=== PATIENT | female | born 1940 | race Caucasian/White ===

== ENCOUNTER → 2018-05-04 | Outpatient (CLI) | payer MEDICARE ==
[~2018-05-04] MED LIST: ALPR.25 PO; AMIO200 PO; ATOR20 PO; Bystolic5 MG PO; CELE200; CYAN500 PO; DIGO.25 PO; ESOM20 PO; FURO20 PO; Flomax0.4 MG PO; HYDACE5 PO; HYDCHL12.5 PO; HYDR1TAB94 PO; LISI20 PO; MEDR10 PO; NEBI10 PO; NEBI5 PO; NITR.4SL SL; Nitrostat0.4 MG SL; Norco 5-325 Ta1 EACH PO; POTCHL20ER PO; Prinivil10 MG PO; Questran4 GM PO; RANI150 PO; SPIR25 PO; TORS10; TORS10 PO; TRAM50 PO; TRIHYD5075 PO; WARF2.5 PO; WARF5 PO; WARF7.5 PO
[2018-05-06 14:09] LABS: HPV 16 Positive (Negative); HPV 18 Negative (Negative); HPV OTHER HR TYPES Negative (Negative)
== END | disposition home or self-care (01) ==
LOC: LAB SHORT 11:19 → LAB 11:19
PROVIDERS: Obstetrics & Gynecology
DX: N89.9 Noninflammatory disorder of vagina, unspecified (principal); Z92.89 Personal history of other medical treatment
CPT/HCPCS: 87529

== ENCOUNTER → 2018-08-17 | Outpatient (CLI) | payer MEDICARE | END | disposition home or self-care (01) | LOC: LAB SHORT 07:48 → PLD 07:48 | DX: N87.1 Moderate cervical dysplasia (principal) | CPT/HCPCS: 88305; 88341; 88342 ==

== ENCOUNTER 2018-09-09 20:29 | Inpatient (IN) | payer MEDICARE ==
[~2018-09-09] VITALS: Ht 165.1 cm; Wt 124.4 kg
[2018-09-09 21:29] LABS: BASOPHILS ABSOLUTE AUTO 0.03 K/mm3 (0.00-0.23); BASOPHILS PERCENT AUTO 0 % (0-2); EOSINOPHILS ABSOLUTE AUTO 0.05 K/mm3 (0.00-0.68); EOSINOPHILS PERCENT AUTO 1 % (0-6); Hematocrit 44.1 % (33.0-51.0); Hemoglobin 13.9 g/dL (11.5-16.0); IMMATURE GRAN ABSOLUTE AUTO 0.01 K/mm3 (0.00-0.10); IMMATURE GRAN PERCENT AUTO 0 % (0-1); LYMPHOCYTES ABSOLUTE AUTO 1.62 K/mm3 (0.84-5.20); LYMPHOCYTES PERCENT AUTO 24 % (21-46); MONOCYTES ABSOLUTE AUTO 0.35 K/mm3 (0.16-1.47); MONOCYTES PERCENT AUTO 5 % (4-13); Mean Corpuscular HGB 29.3 pg (26.0-34.0); Mean Corpuscular HGB Conc 31.5 g/dL (31.5-36.5); Mean Corpuscular Volume 93 fL (80-100); Mean Platelet Volume 11.3 fL (9.1-12.4); NEUTROPHILS ABSOLUTE AUTO 4.65 K/mm3 (1.96-9.15); NEUTROPHILS PERCENT AUTO 70 % (41-73); Platelet Count 207 K/mm3 (150-400); RDW Coefficient Variation 13.5 % (11.7-14.2); RDW Standard Deviation 46.3 fL (35.1-46.3); Red Blood Cell Count 4.74 M/mm3 (3.80-5.20); White Blood Cell Count 6.71 K/mm3 (4.00-11.30)
[2018-09-09 21:47] LABS: Alanine Aminotransfer (ALT/SGP 20 U/L (12-78); Albumin, Blood 3.7 g/dL (3.4-5.0); Albumin/Globulin Ratio 0.9 (0.8-1.8); Alk Phos 98 U/L (50-136); Anion Gap 10 mmol/L (6-16); Aspartate Aminotrans (AST/SGOT 17 U/L (12-37); Bilirubin, Total 0.9 mg/dL (0.1-1.0); Blood Urea Nitrogen 21 mg/dL (8-24); Bun/Creatinine Ratio 30.3 (12.0-20.0); CO2, Blood 25 mmol/L (21-32); Calcium, Blood 8.9 mg/dL (8.5-10.1); Chloride, Blood 109 mmol/L (98-108); Creatinine, Blood 0.69 mg/dL (0.40-1.00); Glomerular Filtration Rate >60 (60-); Glucose, Blood 151 mg/dL (70-99); Sodium, Blood 144 mmol/L (136-145); Total Protein, Blood 7.7 g/dL (6.4-8.2)
[2018-09-09 23:47] LABS: Source, Urine Clean Catch
[2018-09-09 23:55] LABS: Appearance, Urine Hazy (Clear); Bilirubin, Urine Neg (Neg); Blood, Urine 2+ (Neg); Color, Urine Yellow (P-Yellow); Glucose Qualitative, Urine Neg (Neg); Ketones, Urine Neg (Neg); Leukocyte Esterase, Urine 3+ (Neg); Nitrite, Urine Pos (Neg); Protein, Urine 2+ (Neg); Urobilinogen, Urine NORM (Normal)
[2018-09-10 00:03] LABS: Bacteria Many /hpf; Red Blood Cells, Urine 0-2 /hpf (0-2); Squamous Epithelial Cells Mod /hpf (Few); White Blood Cells, Urine 25-50 /hpf (0-5)
[2018-09-10] MEDS ORDERED: ATOR20 PO (02:14)
[2018-09-10] MEDS ORDERED: LISI20 PO (02:14)
[2018-09-10] MEDS ORDERED: WARF5 PO (02:15)
[2018-09-10] MEDS ORDERED: FURO20 PO (02:15)
[2018-09-10] MEDS ORDERED: NEBI10 PO (02:15)
[2018-09-10] MEDS ORDERED: SPIR25 PO (02:15)
[2018-09-10 02:27] LABS: Source, Urine Catheter
[2018-09-10 02:29] LABS: Bilirubin, Urine Neg (Neg); Blood, Urine 1+ (Neg); Glucose Qualitative, Urine Neg (Neg); Ketones, Urine 1+ (Neg); Leukocyte Esterase, Urine 2+ (Neg); Nitrite, Urine Pos (Neg); Protein, Urine 2+ (Neg); Urobilinogen, Urine NORM (Normal)
[2018-09-10 02:31] LABS: Appearance, Urine Hazy (Clear); Color, Urine Yellow (P-Yellow)
[2018-09-10 02:35] LABS: Bacteria Many /hpf; Red Blood Cells, Urine 0-2 /hpf (0-2); Squamous Epithelial Cells Rare /hpf (Few)
--- NOTE | 2018-09-10 05:57 | NUR ---
PCU ADMIT/SHIFT SUMMARY PT BROUGHT TO PCU RM 06 FROM THE ER BY LEONILA @ APPROX 0520. PT ABLE TO STAND AND TRANSFER TO PCU BED W/ 1 PERSON ASSIST W/ FWW. PT SOB W/ ACTIVITY AND STATES "THE MEDS ARE WEARING OFF" W/ C/O R FLANK PAIN. WILL CONTINUE TO MONITOR AND PROVIDE CARE PER ORDERS. PT INCONTINENT OF URINE. ERICA CARE DONE AND ATTENDS PUT ON. MONITOR SHOWS AFIB, HR 100-130. BP ELEVATED. LUNG SOUNDS CLEAR, SPO2 > 92% ON 1L NC. WILL CONTINUE TO MONITOR AND PROVIDE CARE UNTIL REPORT OFF TO DAY SHIFT RN.
[2018-09-10 06:02] LABS: Hematocrit 41.2 % (33.0-51.0); Mean Corpuscular HGB 29.4 pg (26.0-34.0); Mean Corpuscular HGB Conc 31.6 g/dL (31.5-36.5); Mean Corpuscular Volume 93 fL (80-100); Mean Platelet Volume 10.8 fL (9.1-12.4); Platelet Count 182 K/mm3 (150-400); RDW Coefficient Variation 13.6 % (11.7-14.2); RDW Standard Deviation 46.2 fL (35.1-46.3); Red Blood Cell Count 4.42 M/mm3 (3.80-5.20); White Blood Cell Count 7.12 K/mm3 (4.00-11.30)
[2018-09-10 06:16] LABS: International Normalized Ratio 2.04; Prothrombin Time Results 20.3 Sec (9.7-11.5)
[2018-09-10 06:24] LABS: Alanine Aminotransfer (ALT/SGP 18 U/L (12-78); Albumin, Blood 3.4 g/dL (3.4-5.0); Albumin/Globulin Ratio 0.9 (0.8-1.8); Alk Phos 83 U/L (50-136); Anion Gap 6 mmol/L (6-16); Aspartate Aminotrans (AST/SGOT 15 U/L (12-37); Bilirubin, Total 0.9 mg/dL (0.1-1.0); Blood Urea Nitrogen 17 mg/dL (8-24); Bun/Creatinine Ratio 32.1 (12.0-20.0); CO2, Blood 27 mmol/L (21-32); Calcium, Blood 8.4 mg/dL (8.5-10.1); Chloride, Blood 109 mmol/L (98-108); Creatinine, Blood 0.53 mg/dL (0.40-1.00); Globulin, Blood 3.6 g/dL (2.2-4.0); Glomerular Filtration Rate >60 (60-); Glucose, Blood 182 mg/dL (70-99); Potassium, Blood 3.7 mmol/L (3.5-5.5); Sodium, Blood 142 mmol/L (136-145)
--- NOTE | 2018-09-10 08:51 | NUR ---
Assumed Care: Assumed care of pt at approx 0700. VSS. In no apparent sign of distress. Pt c/o R lower flank pain 04/06. See shift assessment for detailed assessment. Received order for IV fentanyl for pain. Given tylenol for pain. Daughter at bedside - given update. Titrated O2 up to 2L O2 NC d/t SpO2 being in the low 90's. Pt currently resting in bed with call light within reach. Dr. Merlos at bedside this AM. Will continue to gabriela.
--- NOTE | 2018-09-10 13:11 | NUR ---
ECHOCARDIOGRAM COMPLETE
--- NOTE | 2018-09-10 18:00 | NUR ---
Shift Summary No acute changes since initial shift assessment. VSS. In no apparent sign of distress. Pt is A&Ox4. Calls appropriately. Pt repositions self and has gotten up to chair today for meals w/SBA. Daughter has remained at bedside t/o the shift. Pt denies any acute complaints or events t/o the shift. Pt reports mild nausea after receiving second dose of fentanyl today, which was relieved by zofran. No acute events or changes on tele. t/o the shift. Afib better controlled with rate in the 70's-90's tonight. Denies any further questions, complaints or requests at this time. Will continue to monitor until report is given to elizabeth GUTIERRES.
[2018-09-11 04:49] LABS: BASOPHILS ABSOLUTE AUTO 0.02 K/mm3 (0.00-0.23); BASOPHILS PERCENT AUTO 0 % (0-2); EOSINOPHILS ABSOLUTE AUTO 0.01 K/mm3 (0.00-0.68); EOSINOPHILS PERCENT AUTO 0 % (0-6); Hematocrit 38.9 % (33.0-51.0); IMMATURE GRAN ABSOLUTE AUTO 0.02 K/mm3 (0.00-0.10); IMMATURE GRAN PERCENT AUTO 0 % (0-1); LYMPHOCYTES PERCENT AUTO 15 % (21-46); MONOCYTES ABSOLUTE AUTO 0.27 K/mm3 (0.16-1.47); MONOCYTES PERCENT AUTO 4 % (4-13); Mean Corpuscular HGB 29.1 pg (26.0-34.0); Mean Corpuscular HGB Conc 30.8 g/dL (31.5-36.5); Mean Corpuscular Volume 94 fL (80-100); Mean Platelet Volume 11.4 fL (9.1-12.4); NEUTROPHILS PERCENT AUTO 80 % (41-73); Platelet Count 176 K/mm3 (150-400); RDW Coefficient Variation 13.4 % (11.7-14.2); RDW Standard Deviation 46.2 fL (35.1-46.3); Red Blood Cell Count 4.13 M/mm3 (3.80-5.20); White Blood Cell Count 6.12 K/mm3 (4.00-11.30)
--- NOTE | 2018-09-11 04:55 | NUR ---
SHIFT SUMMARY PT A&O X4. PT ABLE TO SLEEP MAJORITY OF NIGHT WEARING HOME CPAP, TOLERATING WELL. PT C/O R FLANK PAIN, TX'D PER EMAR. PT THEN C/O STOMACHE PAIN, STATING "TAKING MEDICATION MAKES MY STOMACHE HURT." HEAT THERAPY PROVIDED PER ORDERS. LUNG SOUNDS CLEAR T/O, DIM IN BASES. SPO2 > 90% ON CPAP. MONITOR SHOWS AFIB W/ OCCASSIONAL PACING, HR 60'S-70'S. PT'S DAUGHTER AT BEDSIDE T/O SHIFT. WILL CONTINUE TO MONITOR AND PROVIDE CARE UNTIL REPORT OFF TO DAY SHIFT RN.
[2018-09-11 05:02] LABS: International Normalized Ratio 1.64; Prothrombin Time Results 16.6 Sec (9.7-11.5)
[2018-09-11 05:07] LABS: Alanine Aminotransfer (ALT/SGP 15 U/L (12-78); Albumin, Blood 3.1 g/dL (3.4-5.0); Alk Phos 71 U/L (50-136); Anion Gap 8 mmol/L (6-16); Aspartate Aminotrans (AST/SGOT 15 U/L (12-37); Bilirubin, Total 1.5 mg/dL (0.1-1.0); Blood Urea Nitrogen 21 mg/dL (8-24); CO2, Blood 28 mmol/L (21-32); Calcium, Blood 8.7 mg/dL (8.5-10.1); Chloride, Blood 107 mmol/L (98-108); Creatinine, Blood 0.58 mg/dL (0.40-1.00); Glomerular Filtration Rate >60 (60-); Glucose, Blood 155 mg/dL (70-99); Magnesium, Blood 2.3 mg/dL (1.6-2.4); Potassium, Blood 3.7 mmol/L (3.5-5.5); Sodium, Blood 143 mmol/L (136-145); Total Protein, Blood 6.1 g/dL (6.4-8.2)
--- NOTE | 2018-09-11 11:50 | NUR ---
Assumed Care: Assumed care of pt at approx 0700. VSS. In no apparent sign of distress. Pt is A&Ox4. Calls appropriately and repositions self. Daughter Michelle at bedside. Pt reports that pain was gone this AM until being sat up in bed, which produced 5/10 pain. Given Fentanyl for pain, which produced nausea per pt. Pt experienced emesis as well and was given Zofran for nausea. Pt has c/o headache since that time, and reports that this headache feels just like the chronic migraines that she has had off and on t/o her life. See shift assessment for detailed assessment this AM. Upon entering room, pt had NC in place, but NC was not attached to O2 port - attached to O2 port and increased O2 to 2.5L d/t SpO2 @87%. Pt requesting something else for her headache. Denies any further questions, complaints or requests at this time. Will continue to montior.
--- NOTE | 2018-09-11 18:09 | NUR ---
Shifit Summary No acute changes since initial shift assessment. VSS. In no apparent sign of distress. Fentanyl dc today by Dr. Qiu d/t potential reaction of confusion. Pt reports that she continues to have a mild headache, but nausea has subsided. No acute events or changes on tele. No changes in O2 requirements. Pt currently sitting up in chair with call light within reach. denies any further questions, complaints or requests at this time. Will continue to monitor until report is given to elizabeth GUTIERRES.
[2018-09-12 03:51] LABS: BASOPHILS ABSOLUTE AUTO 0.05 K/mm3 (0.00-0.23); BASOPHILS PERCENT AUTO 1 % (0-2); EOSINOPHILS ABSOLUTE AUTO 0.08 K/mm3 (0.00-0.68); EOSINOPHILS PERCENT AUTO 1 % (0-6); Hematocrit 39.2 % (33.0-51.0); Hemoglobin 12.3 g/dL (11.5-16.0); IMMATURE GRAN ABSOLUTE AUTO 0.02 K/mm3 (0.00-0.10); IMMATURE GRAN PERCENT AUTO 0 % (0-1); LYMPHOCYTES ABSOLUTE AUTO 1.63 K/mm3 (0.84-5.20); LYMPHOCYTES PERCENT AUTO 26 % (21-46); MONOCYTES ABSOLUTE AUTO 0.42 K/mm3 (0.16-1.47); MONOCYTES PERCENT AUTO 7 % (4-13); Mean Corpuscular HGB 28.7 pg (26.0-34.0); Mean Corpuscular HGB Conc 31.4 g/dL (31.5-36.5); Mean Corpuscular Volume 92 fL (80-100); Mean Platelet Volume 10.8 fL (9.1-12.4); NEUTROPHILS ABSOLUTE AUTO 4.15 K/mm3 (1.96-9.15); NEUTROPHILS PERCENT AUTO 65 % (41-73); Platelet Count 171 K/mm3 (150-400); RDW Coefficient Variation 13.5 % (11.7-14.2); Red Blood Cell Count 4.28 M/mm3 (3.80-5.20); White Blood Cell Count 6.35 K/mm3 (4.00-11.30)
[2018-09-12 04:06] LABS: International Normalized Ratio 1.85; Prothrombin Time Results 18.5 Sec (9.7-11.5)
[2018-09-12 04:14] LABS: Alanine Aminotransfer (ALT/SGP 16 U/L (12-78); Albumin, Blood 3.2 g/dL (3.4-5.0); Alk Phos 71 U/L (50-136); Anion Gap 7 mmol/L (6-16); Aspartate Aminotrans (AST/SGOT 12 U/L (12-37); Bilirubin, Total 1.1 mg/dL (0.1-1.0); Blood Urea Nitrogen 21 mg/dL (8-24); CO2, Blood 31 mmol/L (21-32); Calcium, Blood 8.7 mg/dL (8.5-10.1); Chloride, Blood 104 mmol/L (98-108); Creatinine, Blood 0.66 mg/dL (0.40-1.00); Globulin, Blood 3.1 g/dL (2.2-4.0); Glomerular Filtration Rate >60 (60-); Glucose, Blood 131 mg/dL (70-99); Magnesium, Blood 2.1 mg/dL (1.6-2.4); Potassium, Blood 3.3 mmol/L (3.5-5.5); Sodium, Blood 142 mmol/L (136-145); Total Protein, Blood 6.3 g/dL (6.4-8.2)
--- NOTE | 2018-09-12 05:18 | NUR ---
SHIFT SUMMARY PT A&O X4, CALM AND COOPERATIVE, HOPING TO DISCHARGE HOME TODAY. PT STATES R FLANK PAIN TO BE A 2-3/10 T/O SHIFT. PT CHOOSING NOT TO TAKE PAIN MEDICATION STATING "I DON'T DO WELL WITH MEDICATION. I GET CONFUSED." PT ALSO STATES "MY STOMACHE DOESN'T DO WELL WITH MEDICATION." PT STATES PAIN TO BE "OKAY." PT RESTING WELL, WEARING CPAP MAJORITY OF SHIFT. LUNG SOUNDS CLEAR T/O, DIM IN BASES. SPO2 > 90% ON CPAP OR 1.5L NC. RED GROIN AREA IMPROVING W/ NYSTATIN USE PER EMAR. PT'S DAUGHTER AT BEDSIDE ASSITING PT W/ CARE T/O SHIFT. WILL CONTINUE TO MONITOR AND PROVIDE CARE UNTIL REPORT OFF TO DAY SHIFT RN.
--- NOTE | 2018-09-12 09:51 | NUR ---
PACEMAKER INTERROGATION DONE PER ORDER. PT IS FOLLOWED BY DR. LEON. SEEN IN OFFICE 08/29/18 BUT INTERROGATION NOT DONE. RHYTHM IS ATRIAL FIB, RATE 90-100 BPM. NORMAL FUNCTIONING SINGLE CHAMBER PACEMAKER MODE VVIR RATE 60 BPM. LEAD IMPEDANCE 412 OHMS R WAVE 5.6mV. CAPTURE THRESHOLD .75V@.4MS. VENTRICULAR HIGH RATE EPISODES; 4,584. PER PT, TAKES BYSTOLIC 10 MG DAILY. 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
--- NOTE | 2018-09-12 10:45 | NUR ---
RFA IV DC'D BY PRIOR SHIFT. SITE WNL.
--- NOTE | 2018-09-12 11:39 | NUR ---
ASSUMED CARE ASSUMED CARE OF PT @0700. PT'S DAUGHTER AT BEDSIDE. PT STATING HAVING MODERATE PAIN IN LEFT FLANK AND STARTING TO FOR HEADACHE. PT USES REST AND LOWLIGHT TO HELP COMBAT PAIN. DAUGHTER HAS BEEN PLACING BEDPAN UNDERNEATH PT AND POURING INTO CANNISTER FOR MEASURING OUTPUT R/T DIURESING PT. 0900, PT AND DAUGHTER ASK IF LASIX CAN BE HELD UNTIL ABLE TO TALK TO DR JORDAN REGARDING WORRIES ABOUT LASIX CAUSING HEADACHE AND PAIN. NIKKI TO ROOM, EDUCATES THAT LASIX IS PROBABLY NOT THE CAUSE OF THE HEADACHES AND THAT IT IS NECESSARY TO REMOVE THE EXCESS FLUID BUILDUP. PT AGRESS TO TAKE IT AROUND 1030 ONCE HEADACHE HAD SUBSIDED WITH HELP FROM NAP AND TYLENOL.
--- NOTE | 2018-09-12 17:04 | NUR ---
END OF SHIFT SUMMARY PT HAS RESTED T/O SHIFT. REQ'D TYLENOL ALONG WITH LIGHTS OFF/NAP TO HELP ALLEVIATE HEADACHE. PT STATES FLANK PAIN HAS DULLED SINCE THIS AM R/T POSITIONING AND REST. PT HAS HAD MULTIPLE URINE VOIDS. SEE I&O. PT IN AFIB. BP STABLE. PT HAD PACEMAKER INTERROGATED PER ORDERS, SEE INTERROGATION NOTE. PT HAS BEEN ABLE TO AMBULATE TO BATHROOM AND BACK TO BED ALONG WITH SITTING IN CHAIR TO EAT. NO ACUTE CHANGES WITH THIS PT THIS SHIFT. WILL COMNTINUE TO MONITOR PT UNTIL SHIFT CHANGE.
[2018-09-13 04:31] LABS: International Normalized Ratio 1.99; Prothrombin Time Results 19.8 Sec (9.7-11.5)
[2018-09-13 04:37] LABS: Anion Gap 8 mmol/L (6-16); Blood Urea Nitrogen 21 mg/dL (8-24); Bun/Creatinine Ratio 35.7 (12.0-20.0); CO2, Blood 31 mmol/L (21-32); Calcium, Blood 8.6 mg/dL (8.5-10.1); Chloride, Blood 103 mmol/L (98-108); Creatinine, Blood 0.59 mg/dL (0.40-1.00); Glomerular Filtration Rate >60 (60-); Glucose, Blood 143 mg/dL (70-99); Potassium, Blood 3.4 mmol/L (3.5-5.5); Sodium, Blood 142 mmol/L (136-145)
--- NOTE | 2018-09-13 07:44 | NUR ---
SUMMARY PT WITH POSITIVE BLD CX REPORTED THIS AM. I CALLED DR FARMER WITH RESULT AND VERIFIED PER DR TAYLOR ALREADY ORDERED IS EFFECTIVE FOR RESULT. NOCHANGE OF ORDERS GIVEN. PT WITH SLIGHT RECTAL AREA REDNESS THIS AM AFTER BM. DR ASSISTING WITH CLEANSING OF PT. PROVIDED SKIN BARRIER CREAM FOR THIS. PT ALSO C/O INCREASE IN MUSCLE DISCOMFORT R SIDE TONIGHT. PROVIDED ABD BINDER WITH VERB INCREASED COMFORT.
--- NOTE | 2018-09-13 08:19 | NUR ---
Pt's daughter stated this morning that she will be staying with her mom for a few days once the pt is discharged, but that she is concerned that her mother might need more assistance at home. She was asking about discussing this with the product planner. We talked about the possibility of physical therapy with home health, and I told her that I would talk to the doctor and product planner about that today. At breakfast time, the daughter was asking for assistance in repositioning the pt so that she could eat breakfast and then go back to sleep. The pt said that she could get up to the chair, and I encouraged this, mentioning that it would be safer also for her to be sitting upright in the chair rather than the bed, and as the pt had suggested it and was agreeable to the idea, I offered help in assisting the pt up to the chair. The daughter declined my assistance, stating that she could help her mother by herself. Twice she said that she did not want my assistance. Gait belt placed on the bed next to the patient, and walker was also at the bedside for use during transfer.
--- NOTE | 2018-09-13 13:53 | NUR ---
Pt. is sitting up in a chair and talking to the raji in the shal[place],m, pt. reports doing fine encouraged pt and opffeed some prayers.
--- NOTE | 2018-09-13 19:26 | NUR ---
PATIENT ARRIVED VIA BED TO THE UNIT. ALERT AND ORIENTED WITH FAMILY FRIEND AT BEDSIDE. CURRENTLY SITTING IN CHAIR, CONVERSIVE WITH STAFF. AGREE WITH POC FROM BHAVIK ADAMS IN PCU. REPORT GIVEN TO INSURANCE CLAIM AUDITOR RN.
[2018-09-14 05:05] LABS: International Normalized Ratio 2.04; Prothrombin Time Results 20.3 Sec (9.7-11.5)
[2018-09-14 05:06] LABS: Anion Gap 8 mmol/L (6-16); Blood Urea Nitrogen 24 mg/dL (8-24); Bun/Creatinine Ratio 37.4 (12.0-20.0); CO2, Blood 28 mmol/L (21-32); Calcium, Blood 8.7 mg/dL (8.5-10.1); Chloride, Blood 105 mmol/L (98-108); Creatinine, Blood 0.64 mg/dL (0.40-1.00); Glomerular Filtration Rate >60 (60-); Glucose, Blood 153 mg/dL (70-99); Potassium, Blood 3.5 mmol/L (3.5-5.5); Sodium, Blood 141 mmol/L (136-145)
--- NOTE | 2018-09-14 07:22 | NUR ---
Shift summary: Pt c/o left flank pain most of shift but only wants tylenol for pain which only gives moderate relief. Daughter at bedside is RN and very helpful with cares and adls. Recieving rocephin without problems. Pt is one person assist to get to bathroom- weak. Pt wears her own cpap at bedside at hs and has cont pulse ox.
--- NOTE | 2018-09-14 11:53 | NUR ---
Pt. is doing much better she is now in medical floor rom PCU encouraged pt. lyndon prayed for her
[2018-09-14] MEDS ORDERED: Pedi-Dri 100,0060 GM TOP (14:20)
[2018-09-14] MEDS ORDERED: POTA10T PO (14:22)
[2018-09-14] MEDS ORDERED: TAMS.4ER PO (14:23)
[2018-09-14] MEDS ORDERED: CEFU500T30 PO (14:23)
--- NOTE | 2018-09-14 14:29 | NUR ---
Advance Directive Education/spritual care visit conducted. Patient was in the discharge process when I entered the patient's room. I talked to patient and patient's daughter about the importance and process of the advance directive. Patient's daughter is a physician's Trailer Body Assembler and clearly understood the process and welcomed having the form and information about a notary being available on campus. Patient's daughter began filling out the form while I was present. I also facilitated a life/family review and provided companionship and prayer to which the patient expressed gratitude.
--- NOTE | 2018-09-14 16:32 | NUR ---
DISCHARGE PT IS A/O X4, STATE NO FLANK PAIN, NO DISCOMFORT THIS AM, STATE HOPEFUL TO GO HOME TODAY. DAUGHTER WITH PT, ASSISTING WITH PT CARE/NEEDS. DR HORAN IN TO SEE THEM, STATE AWAITING RESULTS OF BLOOD CX THEN WILL PLACE D/C HOME ORDERS. ORDERS RECIEVED THIS AFTERNOON. SCRIPT FAXED TO [facility]/REQUEST. IV D/C INTACT. D/C INSTRUCT PROVIDED TO PT & DAUGHTER. THEY ARE PLEASANT & APPRECIATIVE. SHE HAD SHOWER, DRESS/GATHER BELONGINGS. W/C ESCORT FROM HOSP PROVIDED.
== END 2018-09-14 15:25 | disposition home health service (06) | DRG 689 ==
LOC: ER 20:29 → PCU 09-10 04:49 → EDBEDREQ 09-10 05:19 → PCU 09-10 05:25 → MEDS 09-13 17:10
PROVIDERS: Emergency Medicine; Internal Medicine; ADMIT Internal Medicine
DX: N12 Tubulo-interstitial nephritis, not specified as acute or chronic (principal); I50.41 Acute combined systolic (congestive) and diastolic (congestive) heart failure; R78.81 Bacteremia; N76.0 Acute vaginitis; I11.0 Hypertensive heart disease with heart failure; I48.91 Unspecified atrial fibrillation; B96.20 Unspecified Escherichia coli [E. coli] as the cause of diseases classified elsewhere; Z95.0 Presence of cardiac pacemaker
CPT/HCPCS: 36415; 71046; 74176; 80048; 80053; 81001; 82947; 83605; 83690; 83735; 83880; 84145; 85025; 85027; 85610; 87040; 87077; 87086; 87186; 93005; 93010; 93279; 93306; 94640; 94762; 96361; 96365; 96375; 97116; 97161; 97530; 99285-25; J0696; J1885; J1940; J2405; J2550; J3010; J7030; P9612

== ENCOUNTER → 2018-10-18 | Outpatient (CLI) | payer MEDICARE ==
[~2018-10-18] MED LIST changes: +CEFU500T30 PO; +POTA10T PO; +Pedi-Dri 100,0060 GM TOP; +TAMS.4ER PO
[2018-10-20 16:06] LABS: HPV 16 Positive (Negative); HPV 18 Negative (Negative); HPV OTHER HR TYPES Negative (Negative)
== END | disposition home or self-care (01) ==
LOC: LAB 10:30 → LAB SHORT 10:30
PROVIDERS: Obstetrics & Gynecology
DX: R87.810 Cervical high risk human papillomavirus (HPV) DNA test positive (principal); R87.613 High grade squamous intraepithelial lesion on cytologic smear of cervix (HGSIL)
CPT/HCPCS: 87624; 87625; 88142

== ENCOUNTER 2019-09-12 00:33 | Inpatient (IN) | payer MEDICARE ==
[~2019-09-12] VITALS: Ht 167.6 cm; Wt 124.6 kg
[2019-09-12 01:00] LABS: BASOPHILS ABSOLUTE AUTO 0.04 K/mm3 (0.00-0.23); BASOPHILS PERCENT AUTO 0 % (0-2); EOSINOPHILS ABSOLUTE AUTO 0.01 K/mm3 (0.00-0.68); EOSINOPHILS PERCENT AUTO 0 % (0-6); Hematocrit 46.7 % (33.0-51.0); Hemoglobin 14.9 g/dL (11.5-16.0); IMMATURE GRAN ABSOLUTE AUTO 0.09 K/mm3 (0.00-0.10); IMMATURE GRAN PERCENT AUTO 1 % (0-1); LYMPHOCYTES ABSOLUTE AUTO 0.91 K/mm3 (0.84-5.20); LYMPHOCYTES PERCENT AUTO 7 % (21-46); MONOCYTES ABSOLUTE AUTO 0.38 K/mm3 (0.16-1.47); MONOCYTES PERCENT AUTO 3 % (4-13); Mean Corpuscular HGB 28.9 pg (26.0-34.0); Mean Corpuscular HGB Conc 31.9 g/dL (31.5-36.5); Mean Corpuscular Volume 91 fL (80-100); Mean Platelet Volume 11.1 fL (9.1-12.4); NEUTROPHILS PERCENT AUTO 89 % (41-73); Platelet Count 218 K/mm3 (150-400); RDW Coefficient Variation 13.5 % (11.7-14.2); RDW Standard Deviation 45.5 fL (35.1-46.3); Red Blood Cell Count 5.15 M/mm3 (3.80-5.20); White Blood Cell Count 13.03 K/mm3 (4.00-11.30)
[2019-09-12 01:15] LABS: International Normalized Ratio 1.76; Prothrombin Time Results 18.2 Sec (9.7-11.5)
[2019-09-12 01:22] LABS: Alanine Aminotransfer (ALT/SGP 23 U/L (12-78); Albumin, Blood 3.6 g/dL (3.4-5.0); Albumin/Globulin Ratio 0.9 (0.8-1.8); Alk Phos 105 U/L (50-136); Anion Gap 8 mmol/L (6-16); Aspartate Aminotrans (AST/SGOT 22 U/L (12-37); Beta HCG, Quantitative, Serum 2 mIU/mL (0-3); Bilirubin, Total 1.1 mg/dL (0.1-1.0); Blood Urea Nitrogen 21 mg/dL (8-24); Bun/Creatinine Ratio 37.2 (12.0-20.0); CO2, Blood 26 mmol/L (21-32); CPK Creatine Kinase 85 U/L (26-193); Calcium, Blood 8.9 mg/dL (8.5-10.1); Chloride, Blood 107 mmol/L (98-108); Creatinine, Blood 0.57 mg/dL (0.40-1.00); Ethanol (Alcohol), Blood, Med <3 mg/dL; Globulin, Blood 4.1 g/dL (2.2-4.0); Glomerular Filtration Rate >60 (60-); Glucose, Blood 221 mg/dL (70-99); Potassium, Blood 4.2 mmol/L (3.5-5.5); Sodium, Blood 141 mmol/L (136-145); Total Protein, Blood 7.7 g/dL (6.4-8.2); Troponin I <0.015 ng/mL (0.000-0.040)
[2019-09-12 02:28] LABS: Source, Urine Catheter
[2019-09-12 02:31] LABS: Appearance, Urine Hazy (Clear); Bilirubin, Urine Neg (Neg); Blood, Urine 5+ (Neg); Color, Urine Yellow (P-Yellow); Glucose Qualitative, Urine 3+ (Neg); Ketones, Urine 1+ (Neg); Leukocyte Esterase, Urine Neg (Neg); Nitrite, Urine Pos (Neg); Protein, Urine 3+ (Neg); Urobilinogen, Urine NORM (Normal)
[2019-09-12 02:37] LABS: Bacteria Many /hpf; Squamous Epithelial Cells Few /hpf (Few)
[2019-09-12 02:40] LABS: U Amphetamine Screen Not Detected; U Barbituate Screen Not Detected; U Benzodiazapine Screen Not Detected; U Cocaine Screen Not Detected; U Methadone Screen Not Detected; U Methamphetamine Screen Not Detected; U Opiates Screen Not Detected
[2019-09-12 02:41] LABS: U Buprenorphine Screen Not Detected; U Cannabinoids Screen Not Detected; U Oxycodone Screen Not Detected; U Phencyclidine Screen Not Detected; U Propoxyphene Screen Not Detected
[2019-09-12 06:02] LABS: Hemoglobin 13.9 g/dL (11.5-16.0); Mean Corpuscular HGB 28.4 pg (26.0-34.0); Mean Corpuscular HGB Conc 31.6 g/dL (31.5-36.5); Mean Corpuscular Volume 90 fL (80-100); Platelet Count 195 K/mm3 (150-400); RDW Coefficient Variation 13.8 % (11.7-14.2); RDW Standard Deviation 45.3 fL (35.1-46.3); Red Blood Cell Count 4.89 M/mm3 (3.80-5.20); White Blood Cell Count 10.59 K/mm3 (4.00-11.30)
[2019-09-12 06:17] LABS: Alanine Aminotransfer (ALT/SGP 19 U/L (12-78); Albumin, Blood 3.5 g/dL (3.4-5.0); Albumin/Globulin Ratio 0.9 (0.8-1.8); Alk Phos 95 U/L (50-136); Anion Gap 8 mmol/L (6-16); Aspartate Aminotrans (AST/SGOT 22 U/L (12-37); Bilirubin, Total 1.4 mg/dL (0.1-1.0); Blood Urea Nitrogen 19 mg/dL (8-24); Bun/Creatinine Ratio 38.5 (12.0-20.0); CO2, Blood 28 mmol/L (21-32); Calcium, Blood 8.8 mg/dL (8.5-10.1); Chloride, Blood 104 mmol/L (98-108); Creatinine, Blood 0.49 mg/dL (0.40-1.00); Globulin, Blood 3.8 g/dL (2.2-4.0); Glomerular Filtration Rate >60 (60-); Glucose, Blood 235 mg/dL (70-99); Potassium, Blood 3.8 mmol/L (3.5-5.5); Sodium, Blood 140 mmol/L (136-145); Total Protein, Blood 7.3 g/dL (6.4-8.2)
[2019-09-12 06:29] LABS: International Normalized Ratio 1.57; Prothrombin Time Results 16.4 Sec (9.7-11.5)
[2019-09-13 03:59] LABS: BASOPHILS ABSOLUTE AUTO 0.03 K/mm3 (0.00-0.23); BASOPHILS PERCENT AUTO 0 % (0-2); EOSINOPHILS ABSOLUTE AUTO 0.04 K/mm3 (0.00-0.68); EOSINOPHILS PERCENT AUTO 1 % (0-6); Hematocrit 40.1 % (33.0-51.0); Hemoglobin 12.5 g/dL (11.5-16.0); IMMATURE GRAN ABSOLUTE AUTO 0.02 K/mm3 (0.00-0.10); IMMATURE GRAN PERCENT AUTO 0 % (0-1); LYMPHOCYTES ABSOLUTE AUTO 0.87 K/mm3 (0.84-5.20); LYMPHOCYTES PERCENT AUTO 11 % (21-46); MONOCYTES ABSOLUTE AUTO 0.44 K/mm3 (0.16-1.47); MONOCYTES PERCENT AUTO 5 % (4-13); Mean Corpuscular HGB 28.5 pg (26.0-34.0); Mean Corpuscular HGB Conc 31.2 g/dL (31.5-36.5); Mean Corpuscular Volume 92 fL (80-100); Mean Platelet Volume 11.1 fL (9.1-12.4); NEUTROPHILS ABSOLUTE AUTO 6.86 K/mm3 (1.96-9.15); NEUTROPHILS PERCENT AUTO 83 % (41-73); Platelet Count 165 K/mm3 (150-400); RDW Coefficient Variation 13.6 % (11.7-14.2); RDW Standard Deviation 45.5 fL (35.1-46.3); Red Blood Cell Count 4.38 M/mm3 (3.80-5.20); White Blood Cell Count 8.26 K/mm3 (4.00-11.30)
[2019-09-13 04:21] LABS: International Normalized Ratio 1.48; Prothrombin Time Results 15.5 Sec (9.7-11.5)
[2019-09-13 04:25] LABS: Alanine Aminotransfer (ALT/SGP 18 U/L (12-78); Albumin, Blood 3.2 g/dL (3.4-5.0); Albumin/Globulin Ratio 0.9 (0.8-1.8); Alk Phos 86 U/L (50-136); Anion Gap 6 mmol/L (6-16); Aspartate Aminotrans (AST/SGOT 21 U/L (12-37); Bilirubin, Total 1.6 mg/dL (0.1-1.0); Blood Urea Nitrogen 24 mg/dL (8-24); Bun/Creatinine Ratio 35.3 (12.0-20.0); CO2, Blood 30 mmol/L (21-32); Calcium, Blood 8.6 mg/dL (8.5-10.1); Chloride, Blood 103 mmol/L (98-108); Creatinine, Blood 0.68 mg/dL (0.40-1.00); Globulin, Blood 3.5 g/dL (2.2-4.0); Glomerular Filtration Rate >60 (60-); Glucose, Blood 191 mg/dL (70-99); Potassium, Blood 3.8 mmol/L (3.5-5.5); Sodium, Blood 139 mmol/L (136-145); Total Protein, Blood 6.7 g/dL (6.4-8.2)
[2019-09-13] MEDS ORDERED: CEFD300 PO (11:53)
[2019-09-13] MEDS ORDERED: TORSE20 PO (12:07)
[2019-09-13 16:18] LABS: Source, Urine Clean Catch
[2019-09-13 16:32] LABS: Bilirubin, Urine Neg (Neg); Blood, Urine 4+ (Neg); Glucose Qualitative, Urine Neg (Neg); Ketones, Urine Neg (Neg); Leukocyte Esterase, Urine 3+ (Neg); Nitrite, Urine Neg (Neg); Protein, Urine 2+ (Neg); Urobilinogen, Urine NORM (Normal)
[2019-09-13 17:10] LABS: Appearance, Urine Cloudy (Clear); Color, Urine Yellow (P-Yellow)
[2019-09-13 17:13] LABS: Other Crystals Many /hpf
[2019-09-13 17:14] LABS: Bacteria Many /hpf; Squamous Epithelial Cells Few /hpf (Few); White Blood Cells, Urine 25-50 /hpf (0-5)
== END 2019-09-13 18:35 | disposition home or self-care (01) | DRG 292 ==
LOC: ER 00:33 → ERHOLD 00:34 → PCU 06:04
PROVIDERS: Emergency Medicine; Internal Medicine; ADMIT Internal Medicine
DX: I11.0 Hypertensive heart disease with heart failure (principal); S22.060A Wedge compression fracture of T7-T8 vertebra, initial encounter for closed fracture; S22.080A Wedge compression fracture of T11-T12 vertebra, initial encounter for closed fracture; Z68.41 Body mass index [BMI] 40.0-44.9, adult; I50.43 Acute on chronic combined systolic (congestive) and diastolic (congestive) heart failure; I16.0 Hypertensive urgency; I48.91 Unspecified atrial fibrillation; E66.9 Obesity, unspecified; E78.5 Hyperlipidemia, unspecified; E03.9 Hypothyroidism, unspecified; I07.1 Rheumatic tricuspid insufficiency; G47.33 Obstructive sleep apnea (adult) (pediatric); W01.0XXA Fall on same level from slipping, tripping and stumbling without subsequent striking against object, initial encounter; Y92.009 Unspecified place in unspecified non-institutional (private) residence as the place of occurrence of the external cause; Z66 Do not resuscitate; Z95.0 Presence of cardiac pacemaker; Z88.8 Allergy status to other drugs, medicaments and biological substances; Z88.5 Allergy status to narcotic agent; Z79.01 Long term (current) use of anticoagulants; Z79.899 Other long term (current) drug therapy
CPT/HCPCS: 36415; 51702; 70450; 71250; 72125; 74176; 80053; 81001; 82550; 82947; 83690; 83735; 83880; 84484; 84702; 85025; 85027; 85610; 87077; 87086; 87186; 93005; 93010; 94761; 94762; 96365-59; 96366-59; 96368; 96375; 96375-59; 96376; 96376-59; 97110; 97161; 97166; 97530; 97535; 99285-25; A9270; A9270-GY; G0378; G0480; J0360; J0696; J1885; J1940; J2405

== ENCOUNTER 2020-06-25 12:33 | Emergency (ER) | payer MEDICARE ==
[~2020-06-25] VITALS: Ht 165.1 cm; Wt 44.5 kg
[~2020-06-25 12:33] MED LIST changes: +CEFD300 PO; +TORSE20 PO
[2020-06-25 13:06] LABS: BASOPHILS ABSOLUTE AUTO 0.02 K/mm3 (0.00-0.23); BASOPHILS PERCENT AUTO 0 % (0-2); EOSINOPHILS ABSOLUTE AUTO 0.07 K/mm3 (0.00-0.68); EOSINOPHILS PERCENT AUTO 1 % (0-6); Hematocrit 39.5 % (33.0-51.0); Hemoglobin 12.4 g/dL (11.5-16.0); IMMATURE GRAN ABSOLUTE AUTO 0.01 K/mm3 (0.00-0.10); IMMATURE GRAN PERCENT AUTO 0 % (0-1); LYMPHOCYTES ABSOLUTE AUTO 0.82 K/mm3 (0.84-5.20); LYMPHOCYTES PERCENT AUTO 16 % (21-46); MONOCYTES ABSOLUTE AUTO 0.25 K/mm3 (0.16-1.47); MONOCYTES PERCENT AUTO 5 % (4-13); Mean Corpuscular HGB 28.8 pg (26.0-34.0); Mean Corpuscular HGB Conc 31.4 g/dL (31.5-36.5); Mean Corpuscular Volume 92 fL (80-100); Mean Platelet Volume 11.1 fL (9.1-12.4); NEUTROPHILS ABSOLUTE AUTO 4.05 K/mm3 (1.96-9.15); NEUTROPHILS PERCENT AUTO 78 % (41-73); Platelet Count 159 K/mm3 (150-400); RDW Coefficient Variation 13.2 % (11.7-14.2); RDW Standard Deviation 44.7 fL (35.1-46.3); White Blood Cell Count 5.22 K/mm3 (4.00-11.30)
[2020-06-25] MEDS ORDERED: ALPRAZOLAM0.5 M1 PO (13:09)
[2020-06-25 13:26] LABS: International Normalized Ratio 1.69; Prothrombin Time Results 17.6 Sec (9.7-11.5)
[2020-06-25 13:55] LABS: Alanine Aminotransfer (ALT/SGP 16 U/L (12-78); Albumin, Blood 3.2 g/dL (3.4-5.0); Albumin/Globulin Ratio 0.9 (0.8-1.8); Alk Phos 89 U/L (50-136); Anion Gap 5 mmol/L (6-16); Aspartate Aminotrans (AST/SGOT 15 U/L (12-37); Bilirubin, Total 1.4 mg/dL (0.1-1.0); Blood Urea Nitrogen 16 mg/dL (8-24); Bun/Creatinine Ratio 22.7 (12.0-20.0); CO2, Blood 28 mmol/L (21-32); Calcium, Blood 8.4 mg/dL (8.5-10.1); Chloride, Blood 108 mmol/L (98-108); Globulin, Blood 3.6 g/dL (2.2-4.0); Glomerular Filtration Rate >60 (60-); Glucose, Blood 229 mg/dL (70-99); Potassium, Blood 3.8 mmol/L (3.5-5.5); Sodium, Blood 141 mmol/L (136-145); Total Protein, Blood 6.8 g/dL (6.4-8.2)
== END 2020-06-25 16:04 | disposition home or self-care (01) ==
LOC: ER 12:33
PROVIDERS: Emergency Medicine
DX: S02.2XXA Fracture of nasal bones, initial encounter for closed fracture (principal); R79.1 Abnormal coagulation profile; T45.515A Adverse effect of anticoagulants, initial encounter; Z79.899 Other long term (current) drug therapy; Z79.01 Long term (current) use of anticoagulants; Z91.09 Other allergy status, other than to drugs and biological substances; Z88.5 Allergy status to narcotic agent; Z91.041 Radiographic dye allergy status; Z88.8 Allergy status to other drugs, medicaments and biological substances; Z95.0 Presence of cardiac pacemaker; W01.0XXA Fall on same level from slipping, tripping and stumbling without subsequent striking against object, initial encounter
CPT/HCPCS: 36415; 70450; 72125; 80053; 85025; 85610

== ENCOUNTER 2021-08-21 08:10 | Day surgery (SDC) | payer MEDICARE ==
[~2021-08-21 08:10] MED LIST changes: +ALPRAZOLAM0.5 M1 PO
--- NOTE | 2021-08-21 14:39 | NUR ---
Phone call was made to pts. daughter to clarify expectations for a pre-infusion center visit with Spiritual Care. Pt. is [employer], and a intranet support will not be available for the visit. Agreed that I will connect with te pt. when they are being screened for her appointment. Annointing will be offered. An on-call Venetian Blind Mechanic will be contacted, only in an acute situation.
--- NOTE | 2021-08-21 15:31 | NUR ---
Met pt. at her vehicle prior to infusion appt due to covid screening. Pt. was unsettled about her procedure because of a positive COvid exposure. Provided a calming presence. Pt. declined annointing, but allowed a pre-precedure blessing. Prayed with Pt. and NOK who was present. Pt. displayed evidence of reduced anxiety, and verbalized gratitude for the spiritual care visit.
[2021-08-21] MEDS ORDERED: FURO20 PO (17:03)
== END 2021-08-21 17:47 | disposition home or self-care (01) ==
LOC: ATC 08:10
DX: U07.1 COVID-19 (principal); E11.9 Type 2 diabetes mellitus without complications; I48.91 Unspecified atrial fibrillation; Z79.01 Long term (current) use of anticoagulants; E78.5 Hyperlipidemia, unspecified; I50.9 Heart failure, unspecified
CPT/HCPCS: M0247

== ENCOUNTER → 2021-08-22 | Outpatient (CLI) | payer MEDICARE ==
[2021-08-22 10:51] LABS: Hematocrit 43.3 % (33.0-51.0); Hemoglobin 13.4 g/dL (11.5-16.0); Mean Corpuscular HGB 27.9 pg (26.0-34.0); Mean Corpuscular HGB Conc 30.9 g/dL (31.5-36.5); Mean Corpuscular Volume 90 fL (80-100); Mean Platelet Volume 11.4 fL (9.1-12.4); Platelet Count 178 K/mm3 (150-400); RDW Coefficient Variation 13.9 % (11.7-14.2); RDW Standard Deviation 46.4 fL (35.1-46.3); Red Blood Cell Count 4.81 M/mm3 (3.80-5.20)
[2021-08-22 11:14] LABS: BASOPHILS PERCENT MAN 0 % (0-2); EOSINOPHILS ABSOLUTE MAN 0.14 K/mm3 (0.00-0.68); EOSINOPHILS PERCENT MAN 3 % (0-6); LYMPHOCYTES ABSOLUTE MAN 0.84 K/mm3 (0.84-5.20); LYMPHOCYTES PERCENT MAN 18 % (21-46); MONOCYTES ABSOLUTE MAN 0.61 K/mm3 (0.16-1.47); MONOCYTES PERCENT MAN 13 % (4-13); SEG NEUTROPHILS PERCENT MAN 66 % (41-73); TOTAL CELLS COUNTED 100
[2021-08-22 12:45] LABS: Alanine Aminotransfer (ALT/SGP 21 U/L (12-78); Albumin, Blood 3.6 g/dL (3.4-5.0); Albumin/Globulin Ratio 1.1 (0.8-1.8); Alk Phos 86 U/L (50-136); Anion Gap 6 mmol/L (6-16); Aspartate Aminotrans (AST/SGOT 17 U/L (12-37); Bilirubin, Total 0.9 mg/dL (0.1-1.0); Blood Urea Nitrogen 20 mg/dL (8-24); Bun/Creatinine Ratio 27.8 (12.0-20.0); CO2, Blood 29 mmol/L (21-32); Calcium, Blood 8.8 mg/dL (8.5-10.1); Chloride, Blood 106 mmol/L (98-108); Creatinine, Blood 0.72 mg/dL (0.40-1.00); Globulin, Blood 3.2 g/dL (2.2-4.0); Glomerular Filtration Rate >60 (60-); Glucose, Blood 151 mg/dL (70-99); Sodium, Blood 141 mmol/L (136-145); Total Protein, Blood 6.8 g/dL (6.4-8.2)
== END | disposition home or self-care (01) ==
LOC: LAB SHORT 10:03
PROVIDERS: Physician Assistant Medical
DX: Z79.01 Long term (current) use of anticoagulants (principal); Z51.81 Encounter for therapeutic drug level monitoring; U07.1 COVID-19; E11.9 Type 2 diabetes mellitus without complications
CPT/HCPCS: 36415; 80053; 85007; 85027

== ENCOUNTER 2023-05-05 19:41 | Emergency (ER) | payer OTHER ==
[~2023-05-05] VITALS: Ht 162.6 cm; Wt 108.0 kg
[2023-05-05] MEDS ORDERED: ELIQUIS5 M2 (19:54)
[2023-05-05 21:39] LABS: Albumin, Blood 3.9 g/dL (3.4-5.0); Bilirubin, Total 1.1 mg/dL (0.1-1.0); Bun/Creatinine Ratio 19.9 (12.0-20.0); Calcium, Blood 9.2 mg/dL (8.5-10.1); Creatinine, Blood 0.65 mg/dL (0.40-1.00); Globulin, Blood 3.8 g/dL (2.2-4.0); Magnesium, Blood 2.4 mg/dL (1.6-2.4); Potassium, Blood 3.9 mmol/L (3.5-5.5); Total Protein, Blood 7.7 g/dL (6.4-8.2)
[2023-05-05 23:06] LABS: BASOPHILS ABSOLUTE AUTO 0.04 K/mm3 (0.00-0.23); BASOPHILS PERCENT AUTO 1 % (0-2); EOSINOPHILS ABSOLUTE AUTO 0.05 K/mm3 (0.00-0.68); EOSINOPHILS PERCENT AUTO 1 % (0-6); Hematocrit 44.1 % (33.0-51.0); Hemoglobin 14.1 g/dL (11.5-16.0); IMMATURE GRAN ABSOLUTE AUTO 0.01 K/mm3 (0.00-0.10); IMMATURE GRAN PERCENT AUTO 0 % (0-1); LYMPHOCYTES ABSOLUTE AUTO 1.41 K/mm3 (0.84-5.20); LYMPHOCYTES PERCENT AUTO 19 % (21-46); MONOCYTES ABSOLUTE AUTO 0.41 K/mm3 (0.16-1.47); MONOCYTES PERCENT AUTO 5 % (4-13); Mean Corpuscular HGB 29.1 pg (26.0-34.0); Mean Corpuscular Volume 91 fL (80-100); Mean Platelet Volume 11.1 fL (9.1-12.4); NEUTROPHILS ABSOLUTE AUTO 5.65 K/mm3 (1.96-9.15); NEUTROPHILS PERCENT AUTO 75 % (41-73); Platelet Count 192 K/mm3 (150-400); RDW Coefficient Variation 13.3 % (11.7-14.2); RDW Standard Deviation 43.1 fL (35.1-46.3); Red Blood Cell Count 4.85 M/mm3 (3.80-5.20); White Blood Cell Count 7.57 K/mm3 (4.00-11.30)
[2023-05-05 23:24] LABS: International Normalized Ratio 1.02; Prothrombin Time Results 10.7 Sec (9.7-11.5)
[2023-05-05 23:30] VITALS: BP 186/99
[2023-05-05] MEDS ORDERED: LIDO700A20 TOP (23:48)
== END 2023-05-06 00:57 | disposition home or self-care (01) ==
LOC: ER 19:41
PROVIDERS: Student in an Organized Health Care Education/Training Program
DX: M54.2 Cervicalgia (principal); R51.9 Headache, unspecified; E66.9 Obesity, unspecified; E78.5 Hyperlipidemia, unspecified; I11.0 Hypertensive heart disease with heart failure; I50.9 Heart failure, unspecified; I48.91 Unspecified atrial fibrillation; W07.XXXA Fall from chair, initial encounter; Z88.5 Allergy status to narcotic agent; Z91.09 Other allergy status, other than to drugs and biological substances; Z88.8 Allergy status to other drugs, medicaments and biological substances; Z79.899 Other long term (current) drug therapy; Z79.01 Long term (current) use of anticoagulants; Z95.0 Presence of cardiac pacemaker
CPT/HCPCS: 36415; 70450; 72125; 80053; 83735; 83880; 85025; 85610; 93005; 93010; 96374; 99284-25; A9270

== ENCOUNTER 2023-05-23 15:44 | Emergency (ER) | payer OTHER ==
[~2023-05-23] VITALS: Ht 157.5 cm; Wt 70.3 kg
[~2023-05-23 15:44] MED LIST changes: +ELIQUIS5 M2; +LIDO700A20 TOP
[2023-05-23 16:00] VITALS: BP 197/141
== END 2023-05-23 17:27 | disposition home or self-care (01) ==
LOC: ER 15:44
DX: M16.12 Unilateral primary osteoarthritis, left hip (principal); E78.5 Hyperlipidemia, unspecified; E66.9 Obesity, unspecified; Z68.28 Body mass index [BMI] 28.0-28.9, adult; I48.91 Unspecified atrial fibrillation; E03.9 Hypothyroidism, unspecified; I11.0 Hypertensive heart disease with heart failure; I50.9 Heart failure, unspecified; Z79.01 Long term (current) use of anticoagulants; Z79.899 Other long term (current) drug therapy; Z88.8 Allergy status to other drugs, medicaments and biological substances; Z88.5 Allergy status to narcotic agent; Z91.09 Other allergy status, other than to drugs and biological substances
CPT/HCPCS: 73502; 73562-LT; 99284-25

== ENCOUNTER 2025-02-20 08:33 | Emergency (ER) | payer OTHER ==
[~2025-02-20] VITALS: Ht 165.1 cm; Wt 104.3 kg
[~2025-02-20 08:33] MED LIST changes: +ELIQUIS2.5 MG PO; -ELIQUIS5 M2; +GABA100 PO; +METHIMAZOLE5 M1 PO; +NYSTATIN POWDER; +OMEP20ER PO; +QUET25 PO
[2025-02-20] MEDS ORDERED: NS 1,000 ML IV SCH (09:25)
[2025-02-20 09:48] LABS: BASOPHILS ABSOLUTE AUTO 0.04 K/mm3 (0.00-0.23); BASOPHILS PERCENT AUTO 1 % (0-2); EOSINOPHILS ABSOLUTE AUTO 0.06 K/mm3 (0.00-0.68); EOSINOPHILS PERCENT AUTO 1 % (0-6); Hematocrit 36.9 % (33.0-51.0); Hemoglobin 11.8 g/dL (11.5-16.0); IMMATURE GRAN ABSOLUTE AUTO 0.00 K/mm3 (0.00-0.10); IMMATURE GRAN PERCENT AUTO 0 % (0-1); LYMPHOCYTES ABSOLUTE AUTO 0.91 K/mm3 (0.84-5.20); LYMPHOCYTES PERCENT AUTO 18 % (21-46); MONOCYTES ABSOLUTE AUTO 0.27 K/mm3 (0.16-1.47); MONOCYTES PERCENT AUTO 5 % (4-13); Mean Corpuscular HGB Conc 32.0 g/dL (31.5-36.5); Mean Corpuscular Volume 93 fL (80-100); NEUTROPHILS ABSOLUTE AUTO 3.73 K/mm3 (1.96-9.15); NEUTROPHILS PERCENT AUTO 74 % (41-73); NRBC ABSOLUTE 0.00 K/mm3 (0.00-0.02); NRBC Auto 0.0 /100 WBC (0.0-0.2); Platelet Count 183 K/mm3 (150-400); RDW Coefficient Variation 13.0 % (11.7-14.2); RDW Standard Deviation 44.3 fL (35.1-46.3)
[2025-02-20 10:07] LABS: Alanine Aminotransfer (ALT/SGP 12.0 U/L (12-78); Albumin, Blood 3.9 g/dL (3.4-5.0); Albumin/Globulin Ratio 1.2 (0.8-1.8); Anion Gap 6.0 mmol/L (3-11); Aspartate Aminotrans (AST/SGOT 15.0 U/L (12-37); Bilirubin, Total 1.3 mg/dL (0.1-1.0); Blood Urea Nitrogen 22.0 mg/dL (8-24); CO2, Blood 29.0 mmol/L (21-32); Calcium, Blood 9.2 mg/dL (8.5-10.1); Chloride, Blood 108.0 mmol/L (98-108); Creatinine, Blood 1.01 mg/dL (0.40-1.00); Globulin, Blood 3.3 g/dL (2.2-4.0); Glucose, Blood 144.0 mg/dL (70-99); Potassium, Blood 4.3 mmol/L (3.5-5.5); Sodium, Blood 139.0 mmol/L (136-145); Total Protein, Blood 7.2 g/dL (6.4-8.2)
[2025-02-20 10:12] LABS: Source, Urine Straight Cath
[2025-02-20 10:16] LABS: Bilirubin, Urine Neg (Neg); Color, Urine Yellow (P-Yellow); Glucose Qualitative, Urine Neg (Neg); Ketones, Urine Neg (Neg); Leukocyte Esterase, Urine 1+ (Neg); Protein, Urine Neg (Neg); Specific Gravity, Urine 1.005 (1.003-1.022); Urobilinogen, Urine NORM (Normal)
[2025-02-20 10:24] LABS: Red Blood Cells, Urine Not Seen /hpf (0-2)
[2025-02-20] MEDS ORDERED: MEMA10 PO (10:24)
[2025-02-20] MEDS ORDERED: CEPH250A PO (10:25)
[2025-02-20] MEDS ORDERED: NEBI5 PO (10:25)
[2025-02-20] MEDS ORDERED: TRAZ50 PO (10:39)
[2025-02-20] MEDS ORDERED: CefTRIAXone Sodium 1,000 MG in NS 100 ML IV ONE (10:50)
[2025-02-20] MEDS ORDERED: QUET25 PO (11:01)
[2025-02-20] MEDS ORDERED: LISI10 PO (11:02)
[2025-02-20 11:31] VITALS: BP 102/90
[2025-02-20] MEDS ORDERED: CEPH500 PO (11:42)
== END 2025-02-20 12:14 | disposition home or self-care (01) ==
LOC: ER 08:33
PROVIDERS: Physician Assistant
DX: N39.0 Urinary tract infection, site not specified (principal); E86.0 Dehydration; I11.0 Hypertensive heart disease with heart failure; I50.9 Heart failure, unspecified; I48.91 Unspecified atrial fibrillation; E78.5 Hyperlipidemia, unspecified; Z88.8 Allergy status to other drugs, medicaments and biological substances; Z88.5 Allergy status to narcotic agent; Z91.041 Radiographic dye allergy status; Z79.84 Long term (current) use of oral hypoglycemic drugs
CPT/HCPCS: 80053; 81001; 83690; 85025; 87086; 93005; 93010; 96361; 96365; 99285-25; J0696; J7030

== ENCOUNTER → 2025-05-15 | Outpatient (CLI) | payer OTHER ==
[~2025-05-15] MED LIST changes: +CEPH250A PO; +CEPH500 PO; +LISI10 PO; +MEMA10 PO; +TRAZ50 PO
== END ==
LOC: LAB 16:01 → LAB SHORT 16:01
DX: N39.0 Urinary tract infection, site not specified (principal)
CPT/HCPCS: 87086